=== PATIENT | male | born 1955 | race Caucasian/White ===

== ENCOUNTER → 2016-06-21 | Day surgery (SDC) | payer OTHER ==
[~2016-06-21] VITALS: Ht 180.3 cm; Wt 120.2 kg
[2016-06-21] VITALS (9 sets, daily range): BP systolic 116–153; BP diastolic 67–92
[~2016-06-21] MED LIST: ASPIR 8181 MG ORAL; ATORVASTATIN CA10 MG ORAL; Atropine Sulfate 3.5gm Oint ONE; BSS 15ml BTL ONE; BSS 500ml btl ONE; BYDUREON2 MG SUBQ; Bupivacaine 0.75% 30ml vial INJ ONE; Cyclopentolate 1% Opth Sol ONE; Dexamethasone 4mg/ml vial ONE; Diazepam 10mg/2ml Inj ONE; EPINEPHrine 1mg/1ml Amp ONE; Goniosol 2.5% Opth Soln - 15ml ONE; Indocyanine Green 25mg Inj INJ ONE; Kenalog-40 1ml Vial ONE; Ketorolac 30mg Inj ONE; LOSARTAN POTASS50 MG ORAL; LR 1000ml ONE; Lidocaine 1% MPF 10mg/ml 5ml ONE; Lidocaine 2% MPF 5ml Vial INJ ONE; METFORMIN HCL1000 M1 ORAL; Maxitrol Opth Oint 3.5gm ONE; Metoclopramide 10mg/2ml Inj ONE; Midazolam 2mg/2ml Inj ONE; NS Irrig 1000ml ONE; Phenylephrine 2.5% Op Soln ONE; Povidone-Iodine 5% opth solution ONE; Pred Forte 1% Opth Susp 1ml ONE; Proparacaine 0.5% Opth Soln 15ml LEFT EYE ONE; Propofol 10mg/ml 20ml IV ONE; Sterile Water Irrig 1000ml IRRIG ONE; Tetracaine 0.5% Opth Soln ONE; Tropicamide 1% Opth Soln ONE; fentaNYL 100 mcg/2 mL IV ONE; fentaNYL 100 mcg/2 mL IV PRN
[2016-06-21] MEDS: Tropicamide 1% Opth Soln LEFT EYE SCH ×3 (07:00→07:21)
[2016-06-21] MEDS: Cyclopentolate 1% Opth Sol LEFT EYE SCH ×3 (07:00→07:21)
[2016-06-21] MEDS: Phenylephrine 2.5% Op Soln LEFT EYE SCH ×3 (07:01→07:21)
--- NOTE | 2016-06-21 09:42 | Pre-Procedure Note/Attestation ---
Pre-Procedure Note/Attestation Complete Prior to Procedure Planned Procedure: left Procedure Narrative: Pars plana vitrectomy, membrane peel, silicone oil placement, LEFT EYE Indications for Procedure Pre-Operative Diagnosis: Chronic macular hole, LEFT EYE History of retinal detachment, LEFT EYE Attestation I attest that I discussed the nature of the procedure; its benefits; risks and complications; and alternatives (and the risks and benefits of such alternatives ), prior to the procedure, with the patient (or the patient's legal sales representative metals). I attest that, if there was a reasonable possibility of needing a blood transfusion, the patient (or the patient's legal sales representative metals) was given the [place] [facility] [employer] [facility] standardized written summary, pursuant to the Marky Theresa Blood Safety Act ([place] Health and Safety Code # 1645, as amended). I attest that I re-evaluated the patient just prior to the surgery and that there has been no change in the patient's H&P, except as documented below: Steffen Fleming M.D. Jun 21, 2016 09:42
--- NOTE | 2016-06-21 10:36 | Anethesia Preoperative Eval ---
Anesthesia Pre-op PMH/ROS General Date of Evaluation: Jun 21, 2016 Time of Evaluation: 09:30 Anesthesiologist: tracey ASA Score: ASA 3 Mallampati Score Class I : Soft palate, uvula, fauces, pillars visible Class II: Soft palate, uvula, fauces visible Class III: Soft palate, base of uvula visible Class IV: Only hard plate visible Mallampati Classification: Class III Surgeon: lalezary Surgical Procedure: posterior vitrectomy Anesthesia History: none Social History: smoking Family History: no anesthesia problems Allergies: Coded Allergies: No Known Allergies (Unverified , 06/19/16) Past Medical History Cardiovascular: Reports: HTN Pulmonary: Reports: MARTHA Gastrointestinal/Genitourinary: Denies: CRI, ESRD, GERD, other Endocrine: Denies: DM, hypothyroidism, other, steroids Hematology/Immune: Denies: DVT, anemia, bleeding disorder, other Musculoskeletal/Integumentary: Denies: DDD, DJD, OA, RA, edema, other Other: obesity PSxH Narrative: two previous retinal detachements; knee surgery Anesthesia Pre-op Phys. Exam Physician Exam Last Vital Signs Date Time Temp Pulse Resp B/P Pulse Ox O2 Delivery O2 Flow Rate FiO2 06/21/16 07:04 97.9 65 20 151/92 95 Room Air Constitutional: NAD Neurologic: CN 2-12 intact Cardiovascular: RRR Respiratory: CTA Gastrointestinal: S/NT/ND Airway Exam Mallampati Classification 3 Mallampati Score: Class III MO: full Neck: thick TMD: 1fb ROM: full Teeth: missing Dentures: no lower, no upper Anesthesia Pre-op A/P Studies Pre-op Studies: EKG - sr Risk Assessment & Plan Assessment: obese gentleman, very anxious and had "bad" previous eye surgery Plan: general Status Change Before Surgery: No Pre-Antibiotics Drug: none ADARSH STACK CRNA Jun 21, 2016 10:36
--- NOTE | 2016-06-21 11:07 | Brief Operative Note ---
Immediate Post Operative Note Operative Note Pre-op Diagnosis: Chronic macular hole, LEFT EYE History of retinal detachment, LEFT EYE Procedure: PPV/ILMP/AFE/SO OS Post-op Diagnosis: Same Surgeon: Lonnie Anesthesia: general Specimen: none Complications: none Condition: stable Estimated Blood Loss: minimal Drains: none Implant(s) used?: No Steffen Fleming M.D. Jun 21, 2016 11:07
--- NOTE | 2016-06-21 12:02 | Operative Note - PDOC ---
Operative Note Operative Note Pre-op Diagnosis: Chronic macular hole, LEFT EYE History of retinal detachment, LEFT EYE Procedure: PPV/ILMP/AFE/SO OS Post-op Diagnosis: Same Post-op Diagnosis: same as pre-op Surgeon: Lonnie Anesthesia: general Specimen: none Complications: none Condition: stable Estimated Blood Loss: minimal Drains: none Indications for Procedure Vision loss despite RD repair due to chronic macular hole OS Description of Procedure The patient was met in the pre-op area where informed consent was reviewed. The operative eye was verified, marked and dilated. The patient was transferred to the operative suite, where cardiopulmonary monitoring was established and peribulbar anesthetic was administered without complications. The eye was prepped and draped in sterile ophthalmic fashion. Under microscope visualization the 23 gauge infusion line was placed 3.5 millimeters inferotemporally. After visualization of the tip in the vitreous cavity, the infusion line was turned on. The superotemporal and superonasal cannulas were placed. Under ReSight visualization, peripheral and core vitrectomy was performed ( limited vitreous was present). ICG was used to stain the posterior pole and the ILM were peeled with forceps under contact lens visualization. Further peripheral vitrectomy was performed. Inspection of the peripheral revealed no iatrogenic breaks. Air-fluid exchange was performed and silicone oil infused into the eye. The cannulas were removed and the sclerotomies were sutured. The conjunctiva was closed. The eye maintained normal intraocular pressure. Subconjunctival vancomycin and dexamethasone were administered. The lid speculum was removed. The eye was cleaned of prep and drape. Atropine drop and Maxitrol ointment was applied. A pressure patch was placed. The patient was turned over to the anesthesia team who extubated him and transferred in stable condition to the PACU. (The patient became combative upon waking from anesthesia , but was controlled with additional medication. ) Steffen Fleming M.D. Jun 21, 2016 12:02
--- NOTE | 2016-06-21 13:46 | 48 Hour Post Anesthesia Eval ---
Post Anesthesia Evaluation Procedure: posterior vitrectomy Date of Evaluation: Jun 21, 2016 Time of Evaluation: 13:45 Blood Pressure Systolic: 119 0: 54 Pulse Rate: 70 Respiratory Rate: 14 O2 Sat by Pulse Oximetry: 99 Airway: patent Nausea: No Vomiting: No Hydration Status: adequate Cardiopulmonary Status: normal Mental Status/LOC: patient returned to baseline Post-Anesthesia Complications: none Follow-up care needed: N/A ADARSH STACK CRNA Jun 21, 2016 13:46
--- NOTE | 2016-06-21 13:48 | Immediate Post-Op Evaluation ---
Immediate Post-Op Evalulation Immediate Post-Op Evalulation Procedure: posterior vitrectomy Date of Evaluation: Jun 21, 2016 Time of Evaluation: 11:15 IV Fluids: 500 Blood Pressure Systolic: 151 Blood Pressure Diastolic: 70 Pulse Rate: 70 Respiratory Rate: 14 O2 Sat by Pulse Oximetry: 99 Nausea: No Vomiting: No Complications pt confused and combative. received 10 mg IM Valium post procedure. Required close monitor and reassurance. Pt recovered and later dc/d from PACU. Patient Status: awake, patent Hydration Status: adequate Drug: none REBARIADARSH LATHAM [employer] FR[employer] END DEVELOPER Jun 21, 2016 13:48
== END | disposition home or self-care (01) ==
LOC: SUR 06:21
DX: H35.342 Macular cyst, hole, or pseudohole, left eye (principal); E11.9 Type 2 diabetes mellitus without complications; I10 Essential (primary) hypertension; E78.5 Hyperlipidemia, unspecified; G47.33 Obstructive sleep apnea (adult) (pediatric); E66.9 Obesity, unspecified; F17.210 Nicotine dependence, cigarettes, uncomplicated; Z79.84 Long term (current) use of oral hypoglycemic drugs; Z79.899 Other long term (current) drug therapy; Z90.49 Acquired absence of other specified parts of digestive tract
CPT/HCPCS: 67042; 82962; C1814; J0171; J1100; J1885; J2250; J2405; J2704; J2765; J3010; J3301; J3360; J3370; J7120; 94003; 94150